=== PATIENT | female | born 1950 | race Hispanic/Latino ===

== ENCOUNTER → 2019-06-03 | Outpatient (CLI) | payer OTHER, MEDICARE | END | disposition home or self-care (01) | LOC: SHCH 14:46 | PROVIDERS: ATTEND Internal Medicine Cardiovascular Disease | DX: I35.0 Nonrheumatic aortic (valve) stenosis (principal) | CPT/HCPCS: 93306 ==

== ENCOUNTER → 2019-06-07 | Outpatient (CLI) | payer OTHER, MEDICARE | END | disposition home or self-care (01) | LOC: SHCH 11:30 | PROVIDERS: ATTEND Internal Medicine Cardiovascular Disease | DX: I65.23 Occlusion and stenosis of bilateral carotid arteries (principal) | CPT/HCPCS: 93880 ==

== ENCOUNTER → 2020-02-08 | Outpatient (CLI) | payer OTHER, MEDICARE | END | disposition home or self-care (01) | LOC: RAH 09:26 | PROVIDERS: ATTEND Internal Medicine Gastroenterology | DX: K76.0 Fatty (change of) liver, not elsewhere classified (principal); R10.11 Right upper quadrant pain; K76.9 Liver disease, unspecified | CPT/HCPCS: 76700 ==

== ENCOUNTER → 2020-11-10 | Outpatient (CLI) | payer OTHER | END | disposition home or self-care (01) | LOC: OIH 09:08 | PROVIDERS: ATTEND Internal Medicine Cardiovascular Disease | DX: Z13.6 Encounter for screening for cardiovascular disorders (principal) | CPT/HCPCS: 75571 ==

== ENCOUNTER → 2022-05-05 | Outpatient (CLI) | payer OTHER | END | disposition home or self-care (01) | LOC: RAH 09:09 | PROVIDERS: ATTEND Family Medicine | DX: Z12.31 Encounter for screening mammogram for malignant neoplasm of breast (principal) | CPT/HCPCS: 77067 ==

== ENCOUNTER → 2022-08-29 | Outpatient (CLI) | payer OTHER ==
[~2022-08-29] MED LIST: IOHEXOL-350 75 ML VIAL IV ONE
== END | disposition home or self-care (01) ==
LOC: RAH 10:29
PROVIDERS: ATTEND Family Medicine
DX: N28.1 Cyst of kidney, acquired (principal)
CPT/HCPCS: 74170; Q9967

== ENCOUNTER → 2023-05-12 | Outpatient (CLI) | payer OTHER ==
[2023-05-12] MEDS: REGADENOSON 0.4 MG/5 ML PF SYG IVP ONE (13:20)
== END | disposition home or self-care (01) ==
LOC: SHCH 07:32
PROVIDERS: ATTEND Internal Medicine Cardiovascular Disease
DX: I35.0 Nonrheumatic aortic (valve) stenosis (principal); R07.9 Chest pain, unspecified
CPT/HCPCS: 78452; 93306; 93017; J2785; A9500 ×2; 96374

== ENCOUNTER → 2023-07-01 | Outpatient (CLI) | payer OTHER | END | disposition home or self-care (01) | LOC: RAH 09:09 | PROVIDERS: ATTEND Family Medicine | DX: Z12.31 Encounter for screening mammogram for malignant neoplasm of breast (principal) | CPT/HCPCS: 77067 ==

== ENCOUNTER → 2023-07-03 | Outpatient (CLI) | payer OTHER | END | disposition home or self-care (01) | LOC: RAH 13:00 | PROVIDERS: ATTEND Family Medicine | DX: E04.1 Nontoxic single thyroid nodule (principal); I65.23 Occlusion and stenosis of bilateral carotid arteries; R09.89 Other specified symptoms and signs involving the circulatory and respiratory systems | CPT/HCPCS: 76536; 93880 ==

== ENCOUNTER → 2024-01-14 | Outpatient (CLI) | payer OTHER | END | disposition home or self-care (01) | LOC: RAH 09:19 | PROVIDERS: ATTEND Family Medicine | DX: R10.2 Pelvic and perineal pain (principal) | CPT/HCPCS: 76856 ==

== ENCOUNTER → 2024-02-02 | Outpatient (CLI) | payer OTHER ==
[~2024-02-02] MED LIST changes: +IOHEXOL 350 MG/ML 100ML INFUS..BTL IV ONE; -IOHEXOL-350 75 ML VIAL IV ONE
== END | disposition home or self-care (01) ==
LOC: RAH 08:03
PROVIDERS: ATTEND Internal Medicine Gastroenterology
DX: K57.30 Diverticulosis of large intestine without perforation or abscess without bleeding (principal); R10.30 Lower abdominal pain, unspecified; Z90.49 Acquired absence of other specified parts of digestive tract
CPT/HCPCS: 74178; Q9967

== ENCOUNTER → 2024-09-13 | Outpatient (CLI) | payer OTHER ==
--- NOTE | 2024-09-13 08:48 | HMCIMG ---
Exam Type: MAMMO SCREENING BILATERAL Clinical Information: ROUTINE SCREENING Comparison: July 01, 2023 Technique: Mammogram with CAD was performed with CC and MLO projections. CAD shows no worrisome regions. FINDINGS: The breasts are heterogeneously dense, which may obscure small masses. No dominant mass or suspicious microcalcification identified. There is no nipple retraction or skin thickening. Benign-appearing calcifications are seen. CAD shows no worrisome regions. IMPRESSION: 1. No mammographic signs of malignancy. 2. Routine follow-up recommended. CATEGORY 2: BENIGN FINDINGS Note: A negative x-ray should not delay biopsy if a dominant or clinically suspicious mass is present, since 8-10% of cancers are not identified by mammography. Dense breasts may obscure an underlying neoplasm.
--- NOTE | 2024-09-13 10:17 | HMCIMG ---
Carotid Duplex and color-flow Doppler bilateral Clinical Information: thyroid nodule , rt carotid bruit Comparison: None Findings: Mild bilateral bifurcation plaque is seen. No hemodynamically significant stenosis noted. Left Internal Carotid Artery Peak Systolic Velocity (PSV), Left Internal Carotid to Common Carotid Artery peak systolic velocity ratio, Right Internal Carotid Artery Peak Systolic Velocity (PSV) and Right Internal Carotid to Common Carotid Artery peak systolic velocity ratio, are all within normal limits. External carotid artery velocities normal bilaterally. Bilateral vertebral arteries show normal velocities and waveforms with antegrade flow. Impression: No hemodynamically significant stenosis noted. NASCET CRITERIA. The degree of internal carotid artery stenosis is based on NASCET criteria. Normal is no stenosis. Mild is less than 50% stenosis. Moderate is 50-69% stenosis. Severe is 70% to 99% stenosis. Total occlusion is no detectable patent lumen.
--- NOTE | 2024-09-13 11:14 | HMCIMG ---
THYROID ULTRASOUND History: Nodule Comparison: July 02, 2033 Findings: Right thyroid lobe again demonstrates a hypoechoic well-circumscribed nodule upper aspect measuring 7 mm, smaller than on prior examination. No other nodules are seen either side. Vascularity is unremarkable. The right lobe measures 4.3 x 1.5 x 1.5 cm. The left lobe measures 3.5 x 0.9 x 0.9 cm. The isthmus measures 3 mm. No fluid collections are seen. IMPRESSION: Stable right thyroid nodule.
== END | disposition home or self-care (01) ==
LOC: RAH 06:53
PROVIDERS: ATTEND Family Medicine
DX: Z12.31 Encounter for screening mammogram for malignant neoplasm of breast (principal); R92.333 Mammographic heterogeneous density, bilateral breasts; R09.89 Other specified symptoms and signs involving the circulatory and respiratory systems; E04.1 Nontoxic single thyroid nodule
CPT/HCPCS: 76536; 77067; 93880